=== PATIENT | male | born 1985 | race Native Hawaiian/Other Pacific Islander ===

== ENCOUNTER 2018-01-13 16:49 | Emergency (ER) | payer OTHER ==
[~2018-01-13] VITALS: Ht 177.8 cm; Wt 108.9 kg
== END 2018-01-13 17:27 | disposition home or self-care (01) ==
LOC: ED 16:49
DX: M54.9 Dorsalgia, unspecified (principal); G89.29 Other chronic pain
CPT/HCPCS: 99281

== ENCOUNTER 2018-06-21 17:20 | Emergency (ER) | payer OTHER ==
[~2018-06-21] VITALS: Ht 177.8 cm; Wt 104.3 kg
[2018-06-21 17:28] VITALS: BP 94/57; TEMP 98.4
== END 2018-06-21 18:25 | disposition home or self-care (01) ==
LOC: ED 17:20
DX: J02.0 Streptococcal pharyngitis (principal)
CPT/HCPCS: 36415; 87804; 87880; 96372; 99283; J0696

== ENCOUNTER 2018-07-26 10:51 | Emergency (ER) | payer OTHER ==
[~2018-07-26] VITALS: Ht 177.8 cm; Wt 99.8 kg
[2018-07-26 14:35] VITALS: BP 134/85; TEMP 97.8
== END 2018-07-26 14:35 | disposition home or self-care (01) ==
LOC: ED 10:51
DX: S80.01XA Contusion of right knee, initial encounter (principal); S83.91XA Sprain of unspecified site of right knee, initial encounter; W18.09XA Striking against other object with subsequent fall, initial encounter
CPT/HCPCS: 99283; J1885; L1830

== ENCOUNTER 2019-03-11 17:18 | Emergency (ER) | payer OTHER ==
[~2019-03-11] VITALS: Ht 177.8 cm; Wt 99.8 kg
[2019-03-11 17:25] VITALS: TEMP 99
[2019-03-11 17:40] VITALS: BP 153/88
== END 2019-03-11 17:48 | disposition home or self-care (01) ==
LOC: ED 17:18
DX: S60.456A Superficial foreign body of right little finger, initial encounter (principal); W26.8XXA Contact with other sharp object(s), not elsewhere classified, initial encounter; W45.8XXA Other foreign body or object entering through skin, initial encounter
CPT/HCPCS: 99282